=== PATIENT | male | born 1975 | race Caucasian/White ===

== ENCOUNTER 2022-12-30 11:51 | Emergency (ER) | payer MEDICAID, SELFPAY ==
[2022-12-30 11:56] VITALS: BP 131/79; PULSE 108; TEMP 36.3; O2SAT 100
--- NOTE | 2022-12-30 12:27 | ED.GENADUL_ITS ---
Discharge Plan Disposition Patient Disposition: Home Discharge Details Clinical Impression: Acute lumbosacral myofascial strain, Sacro-iliac pain Primary Care Provider: None,None ED Provider: Italo Trevino Meds and New Rx's Prescriptions: New naproxen [Naprosyn] 500 mg tablet 250 mg PO BID Qty: 20 0RF cyclobenzaprine 5 mg tablet 5 mg PO QHS PRNQty: 20 0RF prednisone 10 mg tablets,dose pack 10 mg PO DIRECTED Qty: 21 0RF Rx Instructions: see taper instructions Discharge Instructions Instructions: Muscle Strain (ED) Stand Alone Forms: Work Release Discharge Data Discharge Physician: Italo Trevino Medical Decision Making MDM: Summary: Patient presents to the emergency department with nontraumatic low back pain that radiates to his right buttock. States the pain is worse when he moves. He was lifting heavy objects he received Valium and Toradol emergency department with moderate relief of his pain he states able to walk as tolerable now he will to be discharged on Naprosyn and a tapering dose of prednisone as well as Flexeril and advised him to be off his feet and off work for this week also warm compresses and if any prompt return to emergency department. Data Review Analysis All the data on this patient was reviewed by me including laboratory and imaging studies as well as bedside studies performed by me Independent review of Studies Imaging Lab: Risk Stratification: Patient with nontraumatic pain to the right lumbosacral area rating to her right buttock most likely radiculopathy due to muscle spasm he is much improved I advised him if he is not better in a week to return to for an MRI Differential Diagnosis: 1. Low back pain 2. Sacroiliitis 3. Sciatica 4. Herniated disc with radicular 5. Consultants: Shared disposition: Patient and daughter understand the instruction he will discharge home and will do accordingly Impression: HPI General Date/Time Provider Initiated Documentation: 12/30/22 12:27 . HPI Narrative: Patient presents emergency department complaining of right lumbosacral pain that radiates to his right buttock and down his leg. States that he was moving boxes yesterday and today and heard a pop and now is having pain. Denies any lower extremity weakness or numbness reports the pain about a 6/10 pain Related Data Home Medications Medication Instructions Recorded Confirmed cyclobenzaprine 5 mg tablet 5 mg PO QHS PRN #20 tabs 12/30/22 naproxen 500 mg tablet (Naprosyn) 250 mg PO BID #20 tabs 12/30/22 prednisone 10 mg tablets in a dose 10 mg PO DIRECTED #21 dose pk 12/30/22 pack Previous Rx's Medication Instructions Recorded cyclobenzaprine 5 mg tablet 5 mg PO QHS PRN #20 tabs 12/30/22 naproxen 500 mg tablet (Naprosyn) 250 mg PO BID #20 tabs 12/30/22 prednisone 10 mg tablets in a dose 10 mg PO DIRECTED #21 dose pk 12/30/22 pack Allergies Allergy/AdvReac Type Severity Reaction Status Date / Time No Known Allergies Allergy Unverified 12/30/22 12:47 General Stated Complaint: Nk/Back Pain CHANDRAKANT: 3 Review of Systems Narrative: Review of Systems: Constitutional: No fevers, chills, sweats Eye: No recent visual problems ENT: No ear pain, nasal congestion, sore throat Respiratory: No shortness of breath, cough Cardiovascular: No Chest pain, palpitations, syncope Gastrointestinal: No nausea, vomiting, diarrhea Genitourinary: No hematuria Kun/Lymph: Negative for bruising tendency, swollen lymph glands Endocrine: Negative for excessive thirst, excessive hunger Musculoskeletal:, neck pain, joint pain, muscle pain, decreased range of motion Integumentary: No rash, pruritus, abrasions Neurologic: Alert & oriented X 4 Psychiatric: No anxiety, depression PFSH All Active Problems (Updated 12/30/22 @ 14:12 by Italo Trevino MD) Acute lumbosacral myofascial strain (Acute) Sacro-iliac pain (Acute) Social History Smoking/Tobacco Use Status: Current every day Tobacco Type: cigarettes Tobacco: How many years used: 30 Smoking risk assessment performed?: Yes Housing: house Do you feel safe at home: Yes Do you feel safe in your relationship?: Yes Exam Narrative Exam Narrative: Exam; vitals signs as reported above normal Constitutional; In no acute distress, afebrile General: cooperative, healthy appearing, comfortable and no acute distress HEENT: Head: normal to inspection, no palpable skull fracture and normocephalic atraumatic Eyes: : appearance normal, both eyes and all related structures EOM intact bilaterally Pupils: PERRL : conjunctiva normal Direct ophthalmoscopy: normal light reflex, normal conjunctiva, normal visual acuity Ears: Normal TM, normal external canal Neck no JVD, supple non tender Neck: normal visual inspection, full ROM and no lymphadenopathy Chest: normal inspection of the chest Respiratory : normal respiratory effort and able to speak in complete sentences no wheezing no rales Cardio Rate: regular rate, rhythm: regular rhythm normal heart sounds S1 and S2 no murmurs, gallops, or rubs GI : normal to inspection, normal bowel sounds, soft, non tender, non distended, no organomegaly Back/Spine/ no CVA tenderness Thoracic/Lumbar tenderness to palpation to the right lower back and sacroiliac joint Skin no rashes or lesions Neuro: patient alert and no meningeal signs, Cranial Nerves: CN's II-XI intact bilaterally, Cognition: normal cognition, Speech: speech normal, Gait: normal gait, Depp tendon reflexes normal 2+ muscle strength 5/5 bilaterally Extremities, no edema, full range of motion, normal strength Course Vital Signs Vital signs: Vital Signs Temperature 36.3 C L 12/30/22 11:56 Pulse 108 H 12/30/22 11:56 Blood Pressure 131/79 12/30/22 11:56 Pulse Oximetry 100 12/30/22 11:56 Temperature 36.3 C L 12/30/22 11:56 Temperature Source Temporal Artery Scan 12/30/22 11:56 Pulse 108 H 12/30/22 11:56 Respiratory Effort Normal 12/30/22 12:05 Blood Pressure 131/79 12/30/22 11:56 Blood Pressure Position Sitting 12/30/22 11:56 Pulse Oximetry 100 12/30/22 11:56 Oxygen Delivery Method Room Air 12/30/22 11:56 Oxygen Flow Rate 0 12/30/22 11:56 Pain Level 7 12/30/22 11:56
[2022-12-30] MEDS: diazePAM 5 MG TAB PO (12:53)
[2022-12-30] MEDS: Ketorolac 15 MG/ML VIAL IVP (12:54)
[2022-12-30 14:14] VITALS: BP 145/92; PULSE 95; RESP 16; O2SAT 98
== END 2022-12-30 14:20 | disposition home or self-care (01) ==
PROVIDERS: Emergency Provider Emergency Medicine Emergency Medical Services
DX: S39.012A Strain of muscle, fascia and tendon of lower back, initial encounter (principal); F17.210 Nicotine dependence, cigarettes, uncomplicated; X50.0XXA Overexertion from strenuous movement or load, initial encounter; Y93.89 Activity, other specified
CPT/HCPCS: 36415; 96374; 99283; J1885